=== PATIENT | male | born 1945 | race Caucasian/White ===

== ENCOUNTER 2017-08-11 17:52 | Emergency (ER) | payer MEDICARE, BC ==
[2015-01-24 11:05] VITALS: BMI 22.0
[~2017-08-11 17:52] MED LIST: ALDACTONE25 MG PO; ASPIRIN81 MG PO; BENADRYL25 MG PO; CIPRO500 MG PO; COUMADIN5 MG PO; COZAAR50 MG PO; DILAUDID4 MG PO; DULCOLAX10 MG/SUPP RC; FLAGYL 500500 MG/100 IV; FLORANEX / LACT1 TAB PO; INDERAL LA80 MG PO; IPRAT-ALBUT 0.5-3 ML UPD; K-DUR20 MEQ PO; LEVAQUIN PREMI750 MG IV; LEVAQUIN750 MG PO; MACROBID100 MG PO; MAG-OX 400 MG400 MG PO; MIRALAX17 GM PO; PROTONIX40 MG PO; SALINE FLUSH10 ML IV; SENOKOT-S TABLE1 TAB PO; SINGULAIR10 MG PO; SYMBICORT 16010.2 GM INH; ULTRAM50 MG PO; VITAMIN E400 UNI2 PO; ZOFRAN4 MG PO
== END 2017-08-11 19:07 | disposition home or self-care (01) ==
LOC: D.ER 17:52
DX: L76.22 Postprocedural hemorrhage of skin and subcutaneous tissue following other procedure (principal); J44.9 Chronic obstructive pulmonary disease, unspecified; Z95.0 Presence of cardiac pacemaker; K74.60 Unspecified cirrhosis of liver; F17.200 Nicotine dependence, unspecified, uncomplicated

== ENCOUNTER 2020-07-01 04:04 | Inpatient (IN) | payer MEDICARE, BC ==
[~2020-07-01] VITALS: Ht 177.8 cm; Wt 61.7 kg
[2020-07-01 04:24] LABS: BASOPHILS 0.1 % (0-2); EOSINOPHILS 1.9 % (0-7); HEMATOCRIT 37.8 % (42.0-54.0); HEMOGLOBIN 12.1 g/dL (13.5-17.5); IMMATURE GRANULOCYTES 0.3 % (0-5); LYMPHOCYTES 36.5 % (15-50); MCH 29.5 pg (26.0-34.0); MCV 92.2 fL (80.0-100.0); MONOCYTES 6.7 % (2-11); NEUTROPHILS 54.5 % (40-80); RDW 16.6 % (11.5-14.5)
[2020-07-01 04:27] LABS: PLATELET COUNT 53 10x3/uL (130-400)
[2020-07-01] MEDS ORDERED: ZOFRAN8 MG PO (04:27)
[2020-07-01] MEDS ORDERED: PERCOCET 7.5/321 TAB PO (04:27)
[2020-07-01] MEDS ORDERED: SINGULAIR10 MG PO (04:30)
[2020-07-01] MEDS ORDERED: PROTONIX40 MG PO (04:30)
[2020-07-01] MEDS ORDERED: PROAIR HFA8.5 G1 INH (04:32)
[2020-07-01] MEDS ORDERED: SEROQUEL25 MG PO (04:32)
[2020-07-01] MEDS ORDERED: SYMBICORT 16010.2 GM INH (04:32)
[2020-07-01] MEDS ORDERED: LASIX40 MG PO (04:33)
[2020-07-01] MEDS ORDERED: SANTYL30 GM TP (04:33)
[2020-07-01 04:37] LABS: ANION GAP 15.6 mmol/L (8-16); CALCIUM 9.2 mg/dL (8.5-10.1); CARBON DIOXIDE 26.1 mmol/L (21.0-32.0); CREATININE - SERUM 1.9 mg/dL (0.6-1.3); POTASSIUM - SERUM 4.7 mmol/L (3.5-5.1)
[2020-07-01 04:43] LABS: APTT 38.6 SECONDS (22.8-39.4); INR 1.26 (0.85-1.17); PROTIME 15.7 SECONDS (11.6-15.0)
[2020-07-01 04:49] LABS: ALBUMIN 3.9 g/dL (3.4-5.0); BILIRUBIN - TOTAL 0.81 mg/dL (0.2-1.3); MAGNESIUM - SERUM 1.9 mg/dL (1.8-2.4); PROTEIN - SERUM 9.2 g/dL (6.4-8.2); TROPONIN-I 0.021 ng/mL (0.000-0.060)
[2020-07-01 05:00] LABS: D-DIMER-QUANTITATIVE > 20.00 ug/mLFEU (0.20-0.54)
[2020-07-01 05:18] LABS: PLATELET ESTIMATE DECREASED
[2020-07-01 05:29] LABS: BILIRUBIN NEGATIVE (NEGATIVE); KETONE NEGATIVE (NEGATIVE); NITRITE POSITIVE (NEGATIVE); UROBILINOGEN NORMAL (NORMAL); WHITE CELLS - URINE 25-50 /hpf (0-5)
[2020-07-01 05:30] LABS: BACTERIA MANY /hpf (NONE SEEN); EPITHELIAL CELLS OCC /hpf (0-5)
--- NOTE | 2020-07-01 06:32 | NUR ---
RECEIVED REPORT, QUESTION AMEE, SPOKE WITH RAJEEV PEPPER, WAS TOLD THE WOULD DO ABGS BEFORE PT CAME OVER, LOOKED UP AND THEY HAD PLACED PT IN BED, NURSE SAID SHE WAS NOT AWARE OF ABG ORDER, THEN BESTY FROM ER CAME AND ASK ME WHAT WAS WRONG, I TOLD HER WHAT DREW PEPPER HAD TOLD ME,
[2020-07-01 08:27] VITALS: BP 133/59
[2020-07-01 10:30] VITALS: BP 133/59; BMI 19.5
[2020-07-01 12:02] VITALS: BP 145/72
[2020-07-01 14:09] VITALS: BMI 19.5
[2020-07-01 14:45] VITALS: Ht 177.8 cm; Wt 61.7 kg
[2020-07-01 17:09] VITALS: BP 163/78
--- NOTE | 2020-07-01 17:30 | NUR ---
CALLED JARROD CURIEL TO MAKE HIM AWARE THAT DOPPLER RESULTS WERE IN. HE STATED HE WOULD GET IN TOUCH WITH TO FIGURE OUT A PLAN FOR PT. AT THIS TIME UNABLE TO GET DOPPLER PULSE ON LLE AND VERY FAINT PULSE ON RLE. BLE BLUE/PURPLE AND COOL TO THE TOUCH. WILL CTM
--- NOTE | 2020-07-01 19:00 | NUR ---
REPORT RECEIVED, WILL CONTINUE POC. PATIENT IS AAOX4, SITTING UP IN BED. NO S/S OF DISTRESS OBSERVED, RR EVEN AND UNLABORED ON 2L O2 VIA NC. BLE PURPLE, LEFT FOOT UNABLE TO PALPATE PULSE. PATIENT DENIES NEEDS AT THIS TIME. CL IN REACH, BED LOCKED AND LOWERED. COVID 19 PRECAUTIONS MAINTAINED. WILL CTM.
[2020-07-01 20:53] VITALS: BP 176/80
[2020-07-01 23:02] VITALS: BP 135/62
--- NOTE | 2020-07-02 05:09 | NUR ---
I have reviewed this patient and I concur with the Shift Assessment completed by the Licensed Practical Nurse today this shift.
[2020-07-02 06:18] LABS: ANION GAP 12.7 mmol/L (8-16); CALCIUM 8.7 mg/dL (8.5-10.1); CARBON DIOXIDE 27.4 mmol/L (21.0-32.0); POTASSIUM - SERUM 4.1 mmol/L (3.5-5.1)
[2020-07-02 06:20] LABS: CREATININE - SERUM 1.4 mg/dL (0.6-1.3)
[2020-07-02 06:50] LABS: BASOPHILS 0.2 % (0-2); EOSINOPHILS 1.6 % (0-7); HEMATOCRIT 33.8 % (42.0-54.0); HEMOGLOBIN 10.6 g/dL (13.5-17.5); IMMATURE GRANULOCYTES 0.2 % (0-5); MCH 28.9 pg (26.0-34.0); MCHC 31.4 g/dL (31.0-37.0); MCV 92.1 fL (80.0-100.0); MONOCYTES 8.1 % (2-11); NEUTROPHILS 53.9 % (40-80); RBC 3.67 10x6/uL (4.20-6.10); RDW 16.4 % (11.5-14.5)
[2020-07-02 07:14] LABS: WBC 4.9 10x3/uL (4.8-10.8)
[2020-07-02 07:16] LABS: PLATELET COUNT 37 10x3/uL (130-400)
[2020-07-02 07:42] VITALS: BP 155/77
[2020-07-02 09:16] LABS: % SATURATION 25 % (15-55); IRON 71 ug/dl (35-150); TOTAL IRON BIND CAPACITY 280 ug/dl (260-445); UNSAT IRON BIND CAPACITY 209 ug/dl (150-375)
[2020-07-02 09:43] LABS: THYROID STIMULATING HORMONE 0.7 uIU/mL (0.36-3.74)
[2020-07-02 11:29] VITALS: BP 117/66
[2020-07-02 15:30] VITALS: BP 156/74
[2020-07-02 21:11] VITALS: BP 164/85
[2020-07-03] VITALS: BP 148/71
--- NOTE | 2020-07-03 01:41 | NUR ---
I have reviewed this patient and I concur with the Shift Assessment completed by the Licensed Practical Nurse today this shift.
[2020-07-03 04:00] VITALS: BP 148/65
[2020-07-03 07:07] LABS: BASOPHILS 0 % (0-2); EOSINOPHILS 0 % (0-7); HEMATOCRIT 30.8 % (42.0-54.0); IMMATURE GRANULOCYTES 0.3 % (0-5); LYMPHOCYTES 17.3 % (15-50); MCH 29.2 pg (26.0-34.0); MCHC 32.5 g/dL (31.0-37.0); MEAN PLATELET VOLUME 10.9 fL (7.4-10.4); MONOCYTES 2.1 % (2-11); NEUTROPHILS 80.3 % (40-80); RBC 3.42 10x6/uL (4.20-6.10); RDW 15.8 % (11.5-14.5); WBC 3.9 10x3/uL (4.8-10.8)
[2020-07-03 07:09] LABS: MCV 90.1 fL (80.0-100.0)
[2020-07-03 07:10] LABS: PLATELET COUNT 32 10x3/uL (130-400)
[2020-07-03 07:17] LABS: CALCIUM 8.6 mg/dL (8.5-10.1); CARBON DIOXIDE 23.1 mmol/L (21.0-32.0); CREATININE - SERUM 1.6 mg/dL (0.6-1.3); POTASSIUM - SERUM 4.1 mmol/L (3.5-5.1)
--- NOTE | 2020-07-03 07:20 | NUR ---
RECIEVE REPORT. ALERT AND ORIENTED X4. SITTING UP IN BED. IV INFUSING ORDERED. DENIES ANY NEEDS. CONTINUE PLAN OF CARE AND SAFETY PRECAUTIONS.
[2020-07-03 07:35] LABS: PLATELET ESTIMATE DECREASED
[2020-07-03 08:01] VITALS: BP 147/67
--- NOTE | 2020-07-03 12:04 | NUR ---
Nutrition Follow-up: Poor appetite; early satiety. Denies N/V. Last BM INNER TUBE CUTTER. Difficulty chewing. Diet: Cardiac PO intake: 67% avg x 3 meals yesterday Wt: 136# (07/01) Labs noted: Na 133, Glu 198 Meds noted: Solumedrol, Protonix, NS @ 50 -+Dental soft to current diet order. -Encourage PO intake and honor food preferences within diet restrictions. -Monitor wt. -RD following.
[2020-07-03 13:28] VITALS: BP 153/74
--- NOTE | 2020-07-03 13:42 | MORECARE ---
CASE MANAGEMENT DISCHARGE SUMMARY PATIENT: FAISAL DENT UNIT: [id number] ADM DATE: 07/01/20 AGE: 74 : 46 SEX: M ROOM/BED: D.2103 AUTHOR: ASHLEY ELLSWORTH PHYSICIAN: REFERRING PHYSICIAN: TWYLA BECERRA MD DATE OF SERVICE: 07/03/20 Discharge Plan Patient Name: FAISAL DENT [facility] [facility] 1945 Planned Disposition: Inpatient Rehab Anticipated Discharge Date: Discharge Date: Expected LOS: Initial Reviewer: [email or web address] Initial Review Date: 07/03/2020 Generated: 07/03/20 2:42 pm DCPIA - Discharge Planning Initial Assessment Updated by [id number]: Carlotta Schaefer on 07/03/20 1:41 pm * Is the patient Alert and Oriented? Yes * How many steps to enter\exit or inside your home? ramp/0 * PCP Dr. Gonzalez * Pharmacy [facility] on [address] * Preadmission Environment Home with Family * ADLs Partial Dependent * Partial ADLs (Assistance needed) Ambulation Bathing Medication Management * Equipment Hospital Bed Nebulizer Other Oxygen Shower Chair Walker Wheelchair * Other Equipment Power chair as well as manual wheelchair Portable oxygen Pacemaker machine * List name and contact numbers for known caregivers / representatives who currently or will assist patient after discharge: Trudy Dent - spouse - [phone] * Verbal permission to speak to the caregivers and representatives has been obtained from the patient. Yes * Community resources currently utilized None * Please name any agencies selected above. DME for oxygen is [facility] * Additional services required to return to the preadmission environment? Yes * Can the patient safely return to the preadmission environment? Yes * Has this patient been hospitalized within the prior 30 days at any hospital? No Patient Name: FAISAL DENT Page 61758 at 1342 All edits/amendments must be made on the electronic document DICTATION DATE: 07/03/20 1342 UNDERWATER HUNTER TRAPPER: KATTY 07/03/20 1342 RPT#: [id number] DC DATE: STATUS: ADM IN [facility] [address] [place] [address] END OF REPORT
--- NOTE | 2020-07-03 14:00 | MORECARE ---
CASE MANAGEMENT DISCHARGE SUMMARY PATIENT: FAISAL DENT UNIT: [id number] ADM DATE: 07/01/20 AGE: 74 : 46 SEX: M ROOM/BED: D.2103 AUTHOR: JODEEDOC PHYSICIAN: REFERRING PHYSICIAN: TWYLA BECERRA MD DATE OF SERVICE: 07/03/20 Discharge Plan Patient Name: FAISAL DENT Facility: [facility]:[place] : 1945 Planned Disposition: Inpatient Rehab Anticipated Discharge Date: Discharge Date: Expected LOS: Initial Reviewer: [id number] Initial Review Date: 07/03/2020 Generated: 07/03/20 2:59 pm Comments DCP- Discharge Planning Updated by [id number]: Carlotta Schaefer on 07/03/20 12:[address] Patient Name: FAISAL DENT Admission Status: ER Accout number: [id number] Admission Date: 07-01-2020 : 1945 Admission Diagnosis:SHORTNESS OF BREATH Attending: TEODORA Current LOS: 2 Anticipated DC Date: Planned Disposition: Inpatient Rehab Primary Insurance: MEDICARE A & B Discharge Planning Comments: CM met with patient to complete initial dc planning assessment. CM educated patient on the CM role and he asks me to call his to ask her the questions and complete assessment. I called his , Trudy, at [phone]. Patient lives in a one level home with his spouse. states that he uses his power chair inside the home and when they go out, take his manual wheelchair. He has a hospital bed with a trapeze. She states that he showers himself, but she is there if needed. States she works from home, so he is not alone. They recently moved from [place], so his DME came from there, states they have transferred to [facility] for oxygen and nebulizer needs. States he does have home concentrator and portable oxygen bottles. States they have an appointment with Dr. Tarango in [place] for his pacemaker check in July to learn how to use the machine they received to check it. CM discussed availability of home health, rehab and additional DME needs. Spouse states they would agree to go to inpatient rehab at [facility] if accepted for upper body strengthening. States she would also agree to home health once discharged from rehab. I discussed the different home health agencies in town and informed her to notify rehab prior to discharge there if accepted. CM will continue to follow and will assist as needed with dc plans/needs. Gang Drill Press Operator: Carlotta Schaefer DCPIA - Discharge Planning Initial Assessment Updated by [email or web address]: Carlotta Schaefer on 07/03/20 1:41 pm * Is the patient Alert and Oriented? Yes * How many steps to enter\exit or inside your home? ramp/0 * PCP Dr. Gonzalez * Pharmacy [facility] [address] * Preadmission Environment Home with Family * ADLs Partial Dependent * Partial ADLs (Assistance needed) Ambulation Bathing Medication Management * Equipment Hospital Bed Nebulizer Other Oxygen Shower Chair Walker Wheelchair * Other Equipment Power chair as well as manual wheelchair Portable oxygen Pacemaker machine * List name and contact numbers for known caregivers / representatives who currently or will assist patient after discharge: Trudy Dent - spouse - [phone] * Verbal permission to speak to the caregivers and representatives has been obtained from the patient. Yes * Community resources currently utilized None * Please name any agencies selected above. DME for oxygen is [facility] * Additional services required to return to the preadmission environment? Yes * Can the patient safely return to the preadmission environment? Yes * Has this patient been hospitalized within the prior 30 days at any hospital? No Coverage Notice Reviewer: [id number] - Carlotta Schaefer Notice Issued Date-Time: 07/03/2020 13:54 Notice Type: Patient Choice Letter Notice Delivered To: Family Member Relationship to Patient: Spouse Charging Machine Operator Name: Trudy Dent Delivery Method: HAND - Hand Delivered Helen Days: Prior Verbal Notification: Recipient Understood Notice: Yes Recipient Signature: Yes Med Rec Note Co-signed by Attending: Coverage Notice Comment: CHRISTINA for [facility] and [facility] inpatient rehab Last DP export: 07/03/20 12:42 p Patient Name: FAISAL DENT Page [id number] at 1400 All edits/amendments must be made on the electronic document DICTATION DATE: 07/03/20 7517 PLUMBING CONTRACTOR: KATTY 07/03/20 135 RPT#: [id number] DC DATE: STATUS: ADM IN [facility] [address] [place] [address] END OF REPORT
[2020-07-03 16:50] VITALS: BP 134/66
[2020-07-03 21:26] VITALS: BP 141/65
[2020-07-04 04:02] VITALS: BP 152/75
--- NOTE | 2020-07-04 04:27 | NUR ---
I have reviewed this patient and I concur with the Shift Assessment completed by the Licensed Practical Nurse today this shift.
[2020-07-04 07:58] VITALS: BP 158/78
--- NOTE | 2020-07-04 08:07 | NUR ---
AM ROUNDING DONE WITH PATIENT LAYING ON SIDE WATCHING PHONE. LEFT FA SEEN WITH SALINE LOCK. LEFT PACEMAKER SEEN, NOT ON HEART MONITOR. ON 3L NC. IS GIVEN TO PATIENT AND INSTRCUTED IN USE, GETS TO 1000 VOLUME. ENCOURGED TO COUGH AND DEEP BREATH. NON PRODUCTIVE COUGH AT THIS TIME. BILATERAL LOWER LEGS ARE BROWN DISCOLORED. WILL CHECK PULSES WITH DOPPLER SHORTLY.
[2020-07-04 08:23] LABS: ANION GAP 14.2 mmol/L (8-16); CALCIUM 8.7 mg/dL (8.5-10.1); CARBON DIOXIDE 22.9 mmol/L (21.0-32.0); CREATININE - SERUM 1.3 mg/dL (0.6-1.3); POTASSIUM - SERUM 4.1 mmol/L (3.5-5.1)
[2020-07-04 08:25] LABS: HEMATOCRIT 31.2 % (42.0-54.0); HEMOGLOBIN 10.2 g/dL (13.5-17.5); LYMPHOCYTES 18.6 % (15-50); MCH 30.1 pg (26.0-34.0); MCHC 32.7 g/dL (31.0-37.0); NEUTROPHILS 76.3 % (40-80); RBC 3.39 10x6/uL (4.20-6.10); RDW 16.5 % (11.5-14.5); WBC 3.4 10x3/uL (4.8-10.8)
[2020-07-04 08:33] LABS: PLATELET COUNT 33 10x3/uL (130-400)
--- NOTE | 2020-07-04 08:33 | NUR ---
LAB TO CALL WITH PLT OF 33.
[2020-07-04] MEDS ORDERED: OMNICEF300 MG PO (09:36)
[2020-07-04] MEDS ORDERED: ZITHROMAX250 MG PO (09:37)
--- NOTE | 2020-07-04 10:47 | NUR ---
WATCHED PATIENT DO HIS IS AGAIN, 1000 VOLUME. ENCAOURGED HIM AND HIS TO TAKE HOME AND CONTINUE TO DO IT. COUGHED SEVERAL TIMES AFTER DOING IS.
[2020-07-04] MEDS ORDERED: PREDNISONE20 MG PO (11:20)
--- NOTE | 2020-07-04 11:23 | MORECARE ---
CASE MANAGEMENT DISCHARGE SUMMARY PATIENT: FAISAL DENT UNIT: [id number] ADM DATE: 07/01/20 AGE: 74 : 47 SEX: M ROOM/BED: D.2103 AUTHOR: JODEEDOC PHYSICIAN: REFERRING PHYSICIAN: TWYLA BECERRA MD DATE OF SERVICE: 07/04/20 Discharge Plan Patient Name: FAISAL DENT Facility: [facility]:[place] : 1945 Planned Disposition: Inpatient Rehab Anticipated Discharge Date: Discharge Date: Expected LOS: Initial Reviewer: [id number] Initial Review Date: 07/03/2020 Generated: 07/04/20 12:22 pm DCP- Discharge Planning Updated by [email or web address]: Carlotta Schaefer on 07/03/20 12:[address] Patient Name: FAISAL DENT Admission Status: ER Accout number: [id number] Admission Date: 07-01-2020 : 1945 Admission Diagnosis:SHORTNESS OF BREATH Attending: TEODORA Current LOS: 2 Anticipated DC Date: Planned Disposition: Inpatient Rehab Primary Insurance: MEDICARE A & B Discharge Planning Comments: CM met with patient to complete initial dc planning assessment. CM educated patient on the CM role and he asks me to call his to ask her the questions and complete assessment. I called his , Trudy, at [phone]. Patient lives in a one level home with his spouse. states that he uses his power chair inside the home and when they go out, take his manual wheelchair. He has a hospital bed with a trapeze. She states that he showers himself, but she is there if needed. States she works from home, so he is not alone. They recently moved from [place], so his DME came from there, states they have transferred to [facility] Patient for oxygen and nebulizer needs. States he does have home concentrator and portable oxygen bottles. States they have an appointment with Dr. Tarango in [place] for his pacemaker check in July to learn how to use the machine they received to check it. CM discussed availability of home health, rehab and additional DME needs. Spouse states they would agree to go to inpatient rehab at [facility] if accepted for upper body strengthening. States she would also agree to home health once discharged from rehab. I discussed the different home health agencies in town and informed her to notify rehab prior to discharge there if accepted. CM will continue to follow and will assist as needed with dc plans/needs. Corporate Human Resources Manager: Carlotta Florescristopher DCPIA - Discharge Planning Initial Assessment Updated by [email or web address]: Carlotta Florescristopher on 07/03/20 1:41 pm * Is the patient Alert and Oriented? Yes * How many steps to enter\exit or inside your home? ramp/0 * PCP Dr. Gonzalez * Pharmacy [facility] [address] * Preadmission Environment Home with Family * ADLs Partial Dependent * Partial ADLs (Assistance needed) Ambulation Bathing Medication Management * Equipment Hospital Bed Nebulizer Other Oxygen Shower Chair Walker Wheelchair * Other Equipment Power chair as well as manual wheelchair Portable oxygen Pacemaker machine * List name and contact numbers for known caregivers / representatives who currently or will assist patient after discharge: Trudy Dent - spouse - [phone] * Verbal permission to speak to the caregivers and representatives has been obtained from the patient. Yes * Community resources currently utilized None * Please name any agencies selected above. DME for oxygen is [facility] * Additional services required to return to the preadmission environment? Yes * Can the patient safely return to the preadmission environment? Yes * Has this patient been hospitalized within the prior 30 days at any hospital? No External [facility]iders [facility] Next Contact Date: Service Request Date: Service Type: Resolution: Reviewer: Comments: Coverage Notice Reviewer: [id number] - Carlotta Schaefer Notice Issued Date-Time: 07/03/2020 13:54 Notice Type: Patient Choice Letter Notice Delivered To: Family Member Relationship to Patient: Spouse Player Piano Technician Name: Trudy Dent Delivery Method: HAND - Hand Delivered Helen Days: Prior Verbal Notification: Recipient Understood Notice: Yes Recipient Signature: Yes Med Rec Note Co-signed by Attending: Coverage Notice Comment: CHRISTINA for [facility] and [facility] inpatient rehab Last DP export: 07/03/20 1:00 p Patient Name: FAISAL DENT Page 68181 at 1123 All edits/amendments must be made on the electronic document DICTATION DATE: 07/04/201121 ARTIFICIAL INTELLIGENCE SPECIALIST: KATTY 07/04/201121 RPT#: [id number] DC DATE: STATUS: ADM IN [facility] [address] [place] [address] END OF REPORT
--- NOTE | 2020-07-04 11:32 | MORECARE ---
CASE MANAGEMENT DISCHARGE SUMMARY PATIENT: FAISAL DENT UNIT: [id number] ADM DATE: 07/01/20 AGE: 74 : 46 SEX: M ROOM/BED: D.2103 AUTHOR: ASHLEY ELLSWORTH PHYSICIAN: REFERRING PHYSICIAN: TWYLA BECERRA MD DATE OF SERVICE: 07/04/20 Discharge Plan Patient Name: FAISAL DENT Facility: [facility]:[place] : 1945 Planned Disposition: Inpatient Rehab Anticipated Discharge Date: Discharge Date: Expected LOS: Initial Reviewer: [email or web address] Initial Review Date: 07/03/2020 Generated: 07/04/20 12:32 pm Comments DCP- Discharge Planning Updated by [id number]: Carlotta Schaefer on 07/04/20 10:[address] Patient Name: FAISAL DENT Encounter No: [id number] : 1945 Primary Insurance: MEDICARE A & B Anticipated DC Date: Planned Disposition: Inpatient Rehab External Planned Provider: : DCP follow-up note: Patient and family in agreement with discharge plan. They have decided not to have rehab. MOHINI for [employer] [facility] signed. I notified Ray with [facility] of discharge and clinical faxed. I also informed them of number [phone]. Case management will follow and assist as needed. Carlotta Florescristopher DCP- Discharge Planning Updated by [id number]: Carlotta Schaefer on 07/03/20 12:[address] Patient Name: FAISAL DENT Admission Status: ER Accout number: [id number] Admission Date: 07-01-2020 : 1945 Admission Diagnosis:SHORTNESS OF BREATH Attending: TEODORA Current LOS: 2 Anticipated DC Date: Planned Disposition: Inpatient Rehab Primary Insurance: MEDICARE A & B Discharge Planning Comments: CM met with patient to complete initial dc planning assessment. CM educated patient on the CM role and he asks me to call his to ask her the questions and complete assessment. I called his , Trudy, at [phone]. Patient lives in a one level home with his spouse. states that he uses his power chair inside the home and when they go out, take his manual wheelchair. He has a hospital bed with a trapeze. She states that he showers himself, but she is there if needed. States she works from home, so he is not alone. They recently moved from [place], so his DME came from there, states they have transferred to [facility] for oxygen and nebulizer needs. States he does have home concentrator and portable oxygen bottles. States they have an appointment with Dr. Tarango in [place] for his pacemaker check in July to learn how to use the machine they received to check it. CM discussed availability of home health, rehab and additional DME needs. Spouse states they would agree to go to inpatient rehab at [facility] if accepted for upper body strengthening. States she would also agree to home health once discharged from rehab. I discussed the different home health agencies in town and informed her to notify rehab prior to discharge there if accepted. CM will continue to follow and will assist as needed with dc plans/needs. Manager Of Broadcast Content: Carlotta Schaefer DCPIA - Discharge Planning Initial Assessment Updated by [id number]: Carlotta Schaefer on 07/03/20 1:41 pm * Is the patient Alert and Oriented? Yes * How many steps to enter\exit or inside your home? ramp/0 * PCP Dr. Gonzalez * Pharmacy [facility] on [address] * Preadmission Environment Home with Family * ADLs Partial Dependent * Partial ADLs (Assistance needed) Ambulation Bathing Medication Management * Equipment Hospital Bed Nebulizer Other Oxygen Shower Chair Walker Wheelchair * Other Equipment Power chair as well as manual wheelchair Portable oxygen Pacemaker machine * List name and contact numbers for known caregivers / representatives who currently or will assist patient after discharge: Trudy Dent - spouse - [phone] * Verbal permission to speak to the caregivers and representatives has been obtained from the patient. Yes * Community resources currently utilized None * Please name any agencies selected above. DME for oxygen is [facility] * Additional services required to return to the preadmission environment? Yes * Can the patient safely return to the preadmission environment? Yes * Has this patient been hospitalized within the prior 30 days at any hospital? No Coverage Notice Reviewer: [id number] - Carlotta Schaefer Notice Issued Date-Time: 07/03/2020 13:54 Notice Type: Patient Choice Letter Notice Delivered To: Family Member Relationship to Patient: Spouse Drop Hammer Operator Helper Name: Trudy Dent Delivery Method: HAND - Hand Delivered Helen Days: Prior Verbal Notification: Recipient Understood Notice: Yes Recipient Signature: Yes Med Rec Note Co-signed by Attending: Coverage Notice Comment: MOHINI for [facility] and [facility] inpatient rehab Reviewer: [id number] Schaefer Notice Issued Date-Time: 07/04/2020 11:22 Notice Type: IM Discharge Notice Notice Delivered To: Family Member Relationship to Patient: Spouse Drop Hammer Operator Helper Name: Trudy Dent Delivery Method: HAND - Hand Delivered Helen Days: Prior Verbal Notification: Recipient Understood Notice: Yes Recipient Signature: Yes Med Rec Note Co-signed by Attending: Coverage Notice Comment: Reviewer: [id number] Schaefer Notice Issued Date-Time: 07/04/2020 11:22 Notice Type: Patient Choice Letter Notice Delivered To: Family Member Relationship to Patient: Spouse Drop Hammer Operator Helper Name: Trudy Dent Delivery Method: HAND - Hand Delivered Helen Days: Prior Verbal Notification: Recipient Understood Notice: Yes Recipient Signature: Yes Med Rec Note Co-signed by Attending: Coverage Notice Comment: mohini for [facility] Last DP export: 07/04/20 10:23 a Patient Name: FAISAL DENT Page 06403 at 1132 All edits/amendments must be made on the electronic document DICTATION DATE: 07/04/201131 EXTRACTIVE METALLURGIST: KATTY 07/04/201131 RPT#: [id number] DC DATE: STATUS: ADM IN [facility] [address] [place] [address] END OF REPORT
[2020-07-04 11:53] VITALS: BP 131/56
--- NOTE | 2020-07-04 14:40 | NUR ---
IV CATH REMOVED WITH TIP INTACT. VERBRAL AND WRITTEN DISCHARGE INSTRUCITONS GIVEN TO PATIENT.
[2020-07-04 15:12] LABS: PLT AB - HLA CLASS 1 Negative (Negative); PLT AB - IIb IIIa Positive (Negative); PLT AB - Ia IIa Negative (Negative); PLT AB - Ib IX Negative (Negative)
== END 2020-07-04 15:31 | disposition home health service (06) | DRG 190 ==
LOC: D.ER 04:04 → D.M2 05:32
PROVIDERS: Family Medicine; Internal Medicine; Internal Medicine Hematology & Oncology; ADMIT Family Medicine; ATTEND Family Medicine
DX: J43.9 Emphysema, unspecified (principal); J18.9 Pneumonia, unspecified organism; N39.0 Urinary tract infection, site not specified; N17.9 Acute kidney failure, unspecified; I11.0 Hypertensive heart disease with heart failure; I50.9 Heart failure, unspecified; I48.91 Unspecified atrial fibrillation; I73.9 Peripheral vascular disease, unspecified; K74.60 Unspecified cirrhosis of liver